=== PATIENT | male | born 1955 | race Caucasian/White ===

== ENCOUNTER 2019-07-14 14:46 | Emergency (ER) | payer OTHER ==
[2019-07-14] MEDS: KETOROLAC 30 MG INJ IM (16:51)
== END 2019-07-14 17:09 | disposition home or self-care (01) ==
LOC: FTE 14:46
DX: M54.5 Low back pain (principal); I10 Essential (primary) hypertension; J45.909 Unspecified asthma, uncomplicated
CPT/HCPCS: 96372; 99284-25